=== PATIENT | male | born 1940 | race Caucasian/White ===

== ENCOUNTER 2022-05-10 11:23 | Inpatient (IN) | payer OTHER ==
[~2022-05-10] VITALS: Ht 172.7 cm; Wt 76.2 kg
[2022-05-10 11:35] VITALS: BP_SYST 106
--- NOTE | 2022-05-10 11:35 | NUR ---
PT TAKEN TO RADIOLOGY VIA WHEELCHAIR.
--- NOTE | 2022-05-10 11:48 | NUR ---
PT HAD SYNCOPAL EPISODE WHILE IN RADIOLOGY, BROUGHT IMMEDIATELY OVER TO ROOM #7 VIA WHEELCHAIR, TRIAGED. REPORT GIVEN TO ALIZE
--- NOTE | 2022-05-10 12:11 | NUR ---
IV 20G STARTED TO RIGHT AC, BLOOD DRAWN FROM IV FOR LAB. IV SECURED IN PLACE
[2022-05-10] MEDS ORDERED: ONDANSETRON HCL 4 MG/2 ML VIAL IVP ONE (12:15)
[2022-05-10] MEDS ORDERED: NACL 0.9% 1,000 ML IV ONE (12:15)
[2022-05-10] MEDS ORDERED: MORPHINE 4 MG INJ. 4 MG/ML VIAL IVP ONE (12:15)
--- NOTE | 2022-05-10 12:31 | NUR ---
pt noted to have sinus micah on monitor technician. informed md piña and asked if he wanted to change morphine medication, stated he will change pain medication
[2022-05-10] MEDS ORDERED: HYDROcodone/ACETAMIN 5-325 MG TAB (NORCO/ VICODIN) PO ONE (12:45)
[2022-05-10 12:48] LABS: BASOPHILS % (AUTO) 0.2 % (0.0-2.0); EOSINOPHILS % (AUTO) 0.2 % (0.0-4.0); HEMATOCRIT 43.2 % (36-54); HEMOGLOBIN 14.6 g/dL (14.0-18.0); LYMPHOCYTES # (AUTO) 1.2 K/uL (1.0-5.5); MEAN CORPUSCULAR HEMOGLOBIN 34 pg (27-31); MEAN CORPUSCULAR HGB CONC 34 % (32-36); MEAN CORPUSCULAR VOLUME 101 fL (79.0-98.0); MONOCYTES # (AUTO) 0.7 K/uL (0.0-1.0); MONOCYTES % (AUTO) 6.5 % (1.7-9.3); NEUTROPHILS # (AUTO) 8.6 K/uL (1.8-7.7); NEUTROPHILS % (AUTO) 82.1 % (40.0-70.0); PLATELET COUNT (AUTO) 203 K/uL (130-430); RED CELL DISTRIBUTION WIDTH 13.9 % (9.0-15.0); WHITE BLOOD COUNT (AUTO) 10.5 K/uL (4.8-10.8)
--- NOTE | 2022-05-10 12:48 | NUR ---
pt back from ct, resting in position of comfort. breathing even and unlabored. safety measures in place
--- NOTE | 2022-05-10 12:50 | NUR ---
attempting to administer pain medication, pt reports "i dont really need it, my pain is like a 3/10". md montesinos
[2022-05-10 12:51] LABS: ANION GAP 9 (5-15); CALCIUM 9.5 mg/dL (8.4-11.0); CHLORIDE 103 mmol/L (98-107); CREATININE 0.88 mg/dL (0.55-1.30); GLUCOSE 152 mg/dL (70-99); UREA NITROGEN, BLOOD 25 mg/dL (8-21)
[2022-05-10 12:56] LABS: ALANINE AMINOTRANSFERASE 53 U/L (12-78); ALBUMIN 3.5 g/dL (3.4-4.8); ASPARTATE AMINOTRANSFERASE 56 U/L (10-37); TOTAL BILIRUBIN 0.6 mg/dL (0.0-1.0)
--- NOTE | 2022-05-10 12:58 | NUR ---
attempting to obtain med rec, pt reports he doesnt take medications. denies medical history
--- NOTE | 2022-05-10 13:14 | NUR ---
COVID NASAL SWAB COLLECTED AT BEDSIDE AND SENT TO LAB
[2022-05-10] MEDS ORDERED: LIDOCAINE/EPI 2% 1:100000 20 ML VIAL INJ ONE (13:15)
--- NOTE | 2022-05-10 14:00 | NUR ---
CHEST TUBE PLACED BY MD ZAPATA AND SECURED. CHEST TUBE CONNECTED TO SUCTION. PT TOLERATED WELL, PT IS AWAKE, A/O X4 AND VERBALLY RESPONSIVE. NO ACUTE DISTRESS NOTED. BREATHING EVEN AND UNLABORED. SAFETY MEASURES IN PLACE
--- NOTE | 2022-05-10 14:20 | NUR ---
NORCO PO GIVEN FOR CHEST PAIN 8/10 S/P CHEST TUBE PLACEMENT, ZOFRAN IVP X1 GIVEN FOR NAUSEA.
[2022-05-10] MEDS ORDERED: KETOROLAC TROMETHAMINE 30 MG VIAL IVP ONE (14:45)
[2022-05-10] MEDS ORDERED: LORazepam 2 MG/ML VIAL IVP PRN (15:15)
[2022-05-10] MEDS ORDERED: ONDANSETRON HCL 4 MG/2 ML VIAL IVP PRN (15:15)
[2022-05-10] MEDS ORDERED: ACETAMINOPHEN 325 MG TABLET PO PRN ×2 (15:15→15:30)
--- NOTE | 2022-05-10 15:15 | NUR ---
Admit bed requested Patient will be admitted to care of . Admitted to TELE unit. Diagnosis PNEUMOTHORAX Inpatient (Yes or No) ES Observation (Yes or No) NO Orientation concerns or request close to nursing station (Yes or No) NO Covid Status NEGATIVE On vent or bipap NO Isolation requirements NO Needs a sitter NO From Home (Yes or if No enter name of facility) HOME Requires Dialysis (Yes or No) NO Med Rec Completed (Yes of No) YES
--- NOTE | 2022-05-10 15:30 | NUR ---
pt awake, a/ox4 and verbally responsive. no acute distress noted. breathing even and unlabored. pt remains resting in position of comfort. no changes at this time, safety measures in place
[2022-05-10] MEDS: NACL 0.9% 1,000 ML IV SCH (15:31)
--- NOTE | 2022-05-10 16:43 | NUR ---
CONSULTATION PAGED REASON FOR CONSULTATION: PNEUMOTHORAX WAS CONSULT CALLED? Y PERSON WHO WAS NOTIFIED: NOHEMY CONSULTING PHYSICIAN: MELISSA BLEVINS (CHRIS [employer] SUPERVISOR COLOR MAKING) SLAB INSTALLER SPECIALTY: PULMONARY SLAB INSTALLER PHONE NUMBER:[phone] REQUESTING PHYSICIAN: PATRICK ROMERO
--- NOTE | 2022-05-10 16:51 | NUR ---
PT TRANSFERRED ONTO TELE BED 100A. BEDSIDE REPORT PROVIDED TO STEFFANIE HESS RN TO CONTINUE CARE OF PT. PT AWAKE A/O X4 AND VERBALLY RESPONSIVE. NO ACUTE DISTRESS NOTED
[2022-05-10 16:55] VITALS: BP_SYST 141
--- NOTE | 2022-05-10 17:00 | NUR ---
RECEIVED PT FROM Naseem. PT IS AAO, PT CAME IN FROM ER FOR CC OF RIB PAIN, DX IS RIB FRACTURE AND PNEUMOTHORAX. CHEST TUBE INTACT CONNECTED TO OASIS DRY SUCTION DRAIN AND TO LOW INTERMITTENT SUCTION. NO DRAINAGE NOTED. PT DENIES CHEST PAIN OR RIB PAIN AT THIS TIME. PT ENCOURAGED TO CALL FOR PAIN MED WHEN PAIN STARTS TO GO UP. WILL CONT TO MONITOR. Addendum: 05/10/22 at 1850 by Keegan Man RN NOTED THAT CHESTUBE IS DIRECTLY CONNECTED TO "SUCTION TUBING" AND NOT ON THE "DRAIN TUBING".
[2022-05-10 17:10] VITALS: BP_SYST 141
--- NOTE | 2022-05-10 18:50 | NUR ---
PT PROVIDED SANDWICH FOR DINNER. REQUESTED DIETARY FOR REG TRAY EARLIER BUT THEY ARE NO ABLE TO PROVIDE.
--- NOTE | 2022-05-10 19:01 | NUR ---
PT MADE AWARE THAT HIS FRIEND SUREKHA CALLED. PT SAID HE LIVES ALONE , IN AN APARTMENT. THIS RN ASKED PT IF HE WANTS US TO CALL HIS CHILDREN. PT SAID NO, HIS FRIEND WILL CALL THEM.
--- NOTE | 2022-05-10 19:20 | NUR ---
RECEIVED REPORT ON PATIENT FROM ANDREA AGUILAR, ASSUMED CARE, AND STARTED ASSESSMENT.
[2022-05-10 20:00] VITALS: BP_SYST 123
--- NOTE | 2022-05-10 22:45 | NUR ---
PAGED DOCTOR ADARSH
--- NOTE | 2022-05-10 22:50 | NUR ---
PAGED PAGED DOCTOR ALTAMIRANO
[2022-05-10] MEDS: HYDROcodone/ACETAMIN 5-325 MG TAB (NORCO/ VICODIN) PO PRN (23:00)
--- NOTE | 2022-05-10 23:00 | NUR ---
PAGED PAGED COLIN ALTAMIRANO
--- NOTE | 2022-05-10 23:03 | NUR ---
PAGED DOCTOR ADARSH
--- NOTE | 2022-05-10 23:04 | NUR ---
PATIENT C/O PAIN IN GENERALIZED CHEST REGION @ 06/09. HE REQUESTED PAIN MEDICATION. MEDICATED PT WITH NORCO 5/325 FOR PAIN PER MD ORDERS. PATIENT HEART RATE WAS FOUND TO BE VASCILLATING BETWEEN THE 30s TO THE 50s. BLOOD PRESSURE WAS 96/53. DR ALTAMIRANO WAS CALLED AWAITING CALL RETURN.
--- NOTE | 2022-05-10 23:10 | NUR ---
PAGED DOCTOR ADARSH
--- NOTE | 2022-05-10 23:20 | NUR ---
PAGED PAGED DOCTOR ALTAMIRANO
--- NOTE | 2022-05-10 23:25 | NUR ---
SPOKE WITH DR GOYAL. HE SAID THAT THIS IS A TRAUMA PATIENT THAT WE ARE NOT EQUIPPED TO HANDLE. HE GAVE ORDERS TO TRANSFER THE PATIENT TO [facility]. WILL CARRY OUT ORDERS AND CONTINUE TO MONITOR AND ASSESS FOR SAFETY AND COMFORT.
--- NOTE | 2022-05-10 23:35 | NUR ---
PAGED DOCTOR JYOTSNA SINCE DR ALTAMIRANO NEVER ANSERED THE PHONE
--- NOTE | 2022-05-10 23:47 | NUR ---
[facility] SPOKE WITH CARLENE , SHE SPOKE WITH THE [facility] SURGEON AND THE DOCTOR SAID THIS PT IS UNSTABLE FOR TRANSFER.. CALLED DR GOYAL BACK CHARGE NURSE IS SPEAKING WITH DR GOYAL
--- NOTE | 2022-05-10 23:52 | NUR ---
CALLED BACK: SINCE DR ALTAMIRANO IS NOT RESPONDING BACK , CALLED DR JYOTSNA MD CALLED BACK , ORDERED TO TRANSFER PT TO ICU , STAT ECHO , DR SUNSHINE CONSULT STAT AND CALL DR TELLEZ STAT . PRIMARY RN IS AWARE OF NEW ORDERS .
--- NOTE | 2022-05-10 23:55 | NUR ---
PAGED DOCTOR JYOTSNA AGAIN FOR ORDERS
--- NOTE | 2022-05-10 23:55 | NUR ---
MD CALLED : CALLED AND TALKED WITH DR SUNSHINE , EXPLAINED MD ABOUT PTS CONDITION , NOTIFIED MD THAT PT IS ON CHEST TUBE FOR PNEUMOTHORAX S/P FALL FX OF 8-11 RIGHT SIDE RIBS , AND PER RECENT CHEST XRAY PNEUMOTHORAX IS RESOLVED . PTS HR WAS ON SINUS EARLIER , SUDDENLY IT STARTED DROPPING AND THE LOWEST ONE IS 31 (MT TOLD ME IT DROPPED TO 28 THEN , I NOTIFIED IT TO MD ), MD NOTIFIED ITS NOT SUSTAINING ON IT AND CURRENTLY ITS 48 , PTS BP IS 85/40. MD ORDERED TO START PT ON DOPAMINE DRIP 5 MCG/KG/MIN AND MAINTAIN HR ABOVE 50 .TRANSFER PT TO ICU , NS BOLUS [address] .PRIMARY RN AND HOUSE SUP MADE AWARE OF THE NEW ORDERS .
--- NOTE | 2022-05-10 23:55 | NUR ---
PAGED: DR STANFORD PAGED,
[2022-05-11] VITALS (17 sets, daily range): BP systolic 88–130
[2022-05-11] MEDS ORDERED: NS 500 ML IV ONE ×2 (00:15→01:30)
[2022-05-11] MEDS ORDERED: COMMUNICATION ORDER XX ONE (00:15)
--- NOTE | 2022-05-11 00:25 | NUR ---
CALLED FRIEND SUREKHA CALLED SUREKHA [phone] LEFT MESSAGE TO CALL US BACK
--- NOTE | 2022-05-11 00:58 | NUR ---
PATIENT TRANSFERRED TO ICU PER MD ORDERS, AND REPORT WAS GIVEN TO SUSIE. CARE TURNED OVER TO ANDREA RICHARDS.
--- NOTE | 2022-05-11 01:00 | NUR ---
Received patient from [facility] after patient developed episode of bradycardia and hypotension. Patient had an order for chest CT and prior to be brought to ICU patient was sent to CT department. Once in ICU, patient was started on dopamine and IV bolus was given as per MD orders. will continue to monitor.
[2022-05-11] MEDS ORDERED: ALBUMIN HUMAN 25% 50 ML IV ONE ×2 (01:30)
[2022-05-11 01:40] LABS: MEAN CORPUSCULAR HEMOGLOBIN 33 pg (27-31); MEAN CORPUSCULAR HGB CONC 33 % (32-36); MEAN CORPUSCULAR VOLUME 100 fL (79.0-98.0); PLATELET COUNT (AUTO) 195 K/uL (130-430); RED CELL DISTRIBUTION WIDTH 13.9 % (9.0-15.0); WHITE BLOOD COUNT (AUTO) 12.3 K/uL (4.8-10.8)
[2022-05-11 01:58] LABS: ALANINE AMINOTRANSFERASE 37 U/L (12-78); ALBUMIN 2.6 g/dL (3.4-4.8); ANION GAP 10 (5-15); ASPARTATE AMINOTRANSFERASE 37 U/L (10-37); CALCIUM 8.3 mg/dL (8.4-11.0); CHLORIDE 111 mmol/L (98-107); CREATININE 0.93 mg/dL (0.55-1.30); GLUCOSE 171 mg/dL (70-99); TOTAL BILIRUBIN 0.7 mg/dL (0.0-1.0); UREA NITROGEN, BLOOD 29 mg/dL (8-21)
[2022-05-11] MEDS ORDERED: NOREPINEPHRINE 4 MG/4 ML VIAL IV ONE ×3 (02:54→08:10)
[2022-05-11 03:18] LABS: BAND % (MANUAL) 2 % (0-6); BASOPHILS % (MANUAL) 0 % (0-2); EOSINOPHILS % (MANUAL) 0 % (0-7); LYMPHOCYTES % (MANUAL) 21 % (20-46); MONOCYTES % (MANUAL) 0 % (0-11)
[2022-05-11] MEDS ORDERED: NOREPINEPHRINE BITARTRATE 4 MG in NS 246 ML IV PRN (03:45)
[2022-05-11] MEDS: NACL 0.9% 1,000 ML IV SCH ×2 (06:30→12:58)
[2022-05-11] MEDS: DOPAMINE 400 MG IV PRN (06:34)
[2022-05-11] MEDS: D5W IV PRN (06:34)
--- NOTE | 2022-05-11 09:03 | NUR ---
Dr. Trevino bedside assessing patient. New orders placed.
[2022-05-11] MEDS ORDERED: ATROPINE SULFATE 1 MG/10 ML SYRINGE IVP PRN (09:15)
[2022-05-11] MEDS: NOREPINEPHRINE BITARTRATE 8 MG in NS 242 ML IV PRN ×3 (09:21→23:29)
[2022-05-11] MEDS ORDERED: NACL 0.9% 1,000 ML IV ONE (09:30)
[2022-05-11 09:42] LABS: BASOPHILS % (AUTO) 0.1 % (0.0-2.0); HEMOGLOBIN 11.7 g/dL (14.0-18.0); LYMPHOCYTES # (AUTO) 0.7 K/uL (1.0-5.5); LYMPHOCYTES % (AUTO) 4.8 % (20.5-51.5); MEAN CORPUSCULAR HEMOGLOBIN 34 pg (27-31); MEAN CORPUSCULAR HGB CONC 33 % (32-36); MEAN CORPUSCULAR VOLUME 101 fL (79.0-98.0); MONOCYTES % (AUTO) 7.5 % (1.7-9.3); PLATELET COUNT (AUTO) 219 K/uL (130-430); RED BLOOD CELL COUNT(AUTO) 3.48 MIL/uL (4.2-6.2); RED CELL DISTRIBUTION WIDTH 14.1 % (9.0-15.0); WHITE BLOOD COUNT (AUTO) 13.7 K/uL (4.8-10.8)
[2022-05-11 09:45] LABS: NEUTROPHILS % (AUTO) 87.6 % (40.0-70.0)
[2022-05-11 09:57] LABS: INR 1.1 (0.80-1.20); PROTHROMBIN TIME 10.7 SECS (9.5-12.5)
--- NOTE | 2022-05-11 10:13 | NUR ---
Dr. Cobb bedside assessing patient. No new orders placed
--- NOTE | 2022-05-11 10:35 | NUR ---
Dr. Melendez bedside assessing patient. Per MD need CT surgery consult. Dr. Cobb paged and notified of needed consult.
--- NOTE | 2022-05-11 19:28 | NUR ---
RECEIVED REPORT ON PATIENT FROM ANDREA HERNÁNDEZ, ASSUMED CARE, AND STARTED ASSESSMENT.
[2022-05-12] VITALS (31 sets, daily range): BP systolic 76–152
--- NOTE | 2022-05-12 00:46 | NUR ---
PATIENT HAD AN IV TO HIS LEFT BICEP, AND THE LEFT FOREARM. THE LEFT ARM WAS NOTICEABLY SWOLLEN AND FLUID WAS VISIBLE POOLING BENEATH THE SKIN. THE ARM WAS INFILTRATED. THE IV'S WERE MOVED TO THE RIGHT WRIST ON A DOUBLE LUMEN J-LINE AND BOTH THE SALINE LOCKS ON THE LEFT ARM WERE DISCONTINUED. THE LEFT ARM WAS ELEVATED ON A PILLOW. ANOTHER IV WAS STARTED TO THE LEFT WRIST AND REMAINS SALINE LOCKED. WILL CONTINUE TO MONITOR AND ASSESS PATIENT FOR SAFETY AND COMFORT.
[2022-05-12] MEDS ORDERED: NOREPINEPHRINE 4 MG/4 ML VIAL IV ONE (06:14)
[2022-05-12 06:20] LABS: BASOPHILS % (AUTO) 0.3 % (0.0-2.0); EOSINOPHILS % (AUTO) 0.2 % (0.0-4.0); HEMATOCRIT 24.8 % (36-54); LYMPHOCYTES # (AUTO) 1.5 K/uL (1.0-5.5); LYMPHOCYTES % (AUTO) 13.8 % (20.5-51.5); MEAN CORPUSCULAR HEMOGLOBIN 35 pg (27-31); MEAN CORPUSCULAR HGB CONC 35 % (32-36); MEAN CORPUSCULAR VOLUME 100 fL (79.0-98.0); MONOCYTES # (AUTO) 1.2 K/uL (0.0-1.0); MONOCYTES % (AUTO) 10.7 % (1.7-9.3); NEUTROPHILS # (AUTO) 8.1 K/uL (1.8-7.7); PLATELET COUNT (AUTO) 157 K/uL (130-430); RED BLOOD CELL COUNT(AUTO) 2.48 MIL/uL (4.2-6.2); RED CELL DISTRIBUTION WIDTH 13.9 % (9.0-15.0); WHITE BLOOD COUNT (AUTO) 10.7 K/uL (4.8-10.8)
[2022-05-12 06:59] LABS: ALANINE AMINOTRANSFERASE 31 U/L (12-78); ALBUMIN 2.5 g/dL (3.4-4.8); ANION GAP 9 (5-15); ASPARTATE AMINOTRANSFERASE 29 U/L (10-37); CALCIUM 7.9 mg/dL (8.4-11.0); CHLORIDE 112 mmol/L (98-107); GLUCOSE 121 mg/dL (70-99); TOTAL BILIRUBIN 0.3 mg/dL (0.0-1.0); UREA NITROGEN, BLOOD 31 mg/dL (8-21)
[2022-05-12 07:07] LABS: THYROID STIMULATING HORMONE 0.26 uIu/mL (0.36-3.74)
--- NOTE | 2022-05-12 07:07 | NUR ---
REPORT GIVEN TO ANDREA HERNÁNDEZ, AND CARE WAS TURNED OVER TO HER.
--- NOTE | 2022-05-12 07:15 | NUR ---
Opening Note Received report from nightclub manager nurse. No s/s of distress. Will monitor and give cares as order by
[2022-05-12] MEDS ORDERED: NS 500 ML IV ONE (08:45)
[2022-05-12 08:59] LABS: HEMOGLOBIN 8.6 g/dL (14.0-18.0)
[2022-05-12] MEDS: HYDROcodone/ACETAMIN 5-325 MG TAB (NORCO/ VICODIN) PO PRN (13:24)
[2022-05-12] MEDS: MORPHINE 2 MG/ML INJ. SYRINGE IVP PRN (13:24)
[2022-05-12] MEDS: NACL 0.9% 1,000 ML IV SCH ×2 (15:24→21:17)
--- NOTE | 2022-05-12 17:12 | NUR ---
business services specialist sales re: social service consult for HLOC for CTVS Evaluation Met with ANDREA Lazo in ICU to advise her that the social service consult for HLOC for CTVS Evaluation will be addressed and handled by the case management team through his insurance, [employer]. I advised her that this consult was faxed to [employer] earlier today to begin working on this need. At this time, the nurse was advised that there was no further follow up needed from high school social studies teacher.
[2022-05-12 20:27] LABS: PROTHROMBIN TIME 10.4 SECS (9.5-12.5)
[2022-05-12] MEDS: DOPAMINE 400 MG IV PRN (21:17)
[2022-05-12] MEDS: D5W IV PRN (21:17)
[2022-05-13] VITALS (22 sets, daily range): BP systolic 104–130
[2022-05-13] MEDS: NACL 0.9% 1,000 ML IV SCH ×3 (05:18→21:06)
[2022-05-13 06:09] LABS: BASOPHILS % (AUTO) 0.1 % (0.0-2.0); EOSINOPHILS % (AUTO) 0.4 % (0.0-4.0); HEMATOCRIT 22.8 % (36-54); HEMOGLOBIN 7.9 g/dL (14.0-18.0); LYMPHOCYTES # (AUTO) 0.9 K/uL (1.0-5.5); LYMPHOCYTES % (AUTO) 9.2 % (20.5-51.5); MEAN CORPUSCULAR HEMOGLOBIN 34 pg (27-31); MEAN CORPUSCULAR HGB CONC 34 % (32-36); MEAN CORPUSCULAR VOLUME 98 fL (79.0-98.0); MONOCYTES # (AUTO) 0.9 K/uL (0.0-1.0); MONOCYTES % (AUTO) 9.2 % (1.7-9.3); NEUTROPHILS # (AUTO) 7.6 K/uL (1.8-7.7); NEUTROPHILS % (AUTO) 81.1 % (40.0-70.0); PLATELET COUNT (AUTO) 107 K/uL (130-430); RED BLOOD CELL COUNT(AUTO) 2.32 MIL/uL (4.2-6.2); RED CELL DISTRIBUTION WIDTH 14.1 % (9.0-15.0); WHITE BLOOD COUNT (AUTO) 9.3 K/uL (4.8-10.8)
[2022-05-13 06:43] LABS: ALANINE AMINOTRANSFERASE 28 U/L (12-78); ALBUMIN 2.2 g/dL (3.4-4.8); ANION GAP 7 (5-15); ASPARTATE AMINOTRANSFERASE 27 U/L (10-37); CALCIUM 7.7 mg/dL (8.4-11.0); CHLORIDE 111 mmol/L (98-107); CREATININE 0.56 mg/dL (0.55-1.30); GLUCOSE 91 mg/dL (70-99); TOTAL BILIRUBIN 0.6 mg/dL (0.0-1.0); UREA NITROGEN, BLOOD 16 mg/dL (8-21)
--- NOTE | 2022-05-13 11:15 | NUR ---
1115 AM ATTEMPTED TO CALL DR. FLORES BY [employer], PHONE SYSTEM NOT WORKING. CHARGE NURSE NOTIFIED.
--- NOTE | 2022-05-13 11:15 | NUR ---
1105 AM WHILE REMOVING CHEST TUBE BANDAGE TO ASSESS INSERTION SITE. CHEST TUBE FELL OUT. VASELINE GAUZE APPLIED AND DRESSED WITH GAUZE AND TAPE. PATIENT DENIES SHORTNESS OF BREATH O2 SAT 97%, 20 RR, BP 120/59 HOB ELEVATED.
--- NOTE | 2022-05-13 11:20 | NUR ---
1[address] AM ABLE TO REACH DR. FLORES, INFORMED OF CHEST TUBE COMING OUT. STAT CHEST X-RAY ORDERED.
--- NOTE | 2022-05-13 15:59 | NUR ---
1550 DR. FLORES AT BEDSIDE ORDERED CHEST X-RAY AND H & H FOR TOMORROW 05/14/2022
[2022-05-14] VITALS (24 sets, daily range): BP systolic 97–137
[2022-05-14] MEDS: NACL 0.9% 1,000 ML IV SCH ×3 (05:43→21:01)
[2022-05-14 05:59] LABS: HEMATOCRIT 22.2 % (36-54); HEMOGLOBIN 7.6 g/dL (14.0-18.0)
[2022-05-14 07:49] LABS: BASOPHILS % (AUTO) 0.1 % (0.0-2.0); EOSINOPHILS # (AUTO) 0.1 K/uL (0.0-0.4); EOSINOPHILS % (AUTO) 0.5 % (0.0-4.0); HEMATOCRIT 23.5 % (36-54); LYMPHOCYTES # (AUTO) 0.7 K/uL (1.0-5.5); LYMPHOCYTES % (AUTO) 6.2 % (20.5-51.5); MEAN CORPUSCULAR HEMOGLOBIN 34 pg (27-31); MEAN CORPUSCULAR HGB CONC 34 % (32-36); MEAN CORPUSCULAR VOLUME 99 fL (79.0-98.0); MONOCYTES # (AUTO) 0.8 K/uL (0.0-1.0); MONOCYTES % (AUTO) 7.6 % (1.7-9.3); NEUTROPHILS # (AUTO) 9.3 K/uL (1.8-7.7); NEUTROPHILS % (AUTO) 85.6 % (40.0-70.0); PLATELET COUNT (AUTO) 123 K/uL (130-430); RED BLOOD CELL COUNT(AUTO) 2.39 MIL/uL (4.2-6.2); RED CELL DISTRIBUTION WIDTH 14.3 % (9.0-15.0); WHITE BLOOD COUNT (AUTO) 10.9 K/uL (4.8-10.8)
--- NOTE | 2022-05-14 08:00 | NUR ---
HANNA PHILLIPS RN IS IN CHARGE OF THIS PT WHO IS ALERT/ORIENTED, DENIES PAIN, REGULAR DIET AND IN ZERO DISTRESS ON ROOM AIR/MPT CONSUMED 100% OF BREAKFAST/MW
[2022-05-14 08:30] LABS: ALANINE AMINOTRANSFERASE 27 U/L (12-78); ALBUMIN 2.1 g/dL (3.4-4.8); ANION GAP 6 (5-15); ASPARTATE AMINOTRANSFERASE 25 U/L (10-37); CHLORIDE 110 mmol/L (98-107); CREATININE 0.56 mg/dL (0.55-1.30); GLUCOSE 94 mg/dL (70-99); TOTAL BILIRUBIN 0.6 mg/dL (0.0-1.0); UREA NITROGEN, BLOOD 16 mg/dL (8-21)
[2022-05-14] MEDS ORDERED: POTASSIUM CHLORIDE 20 MEQ/PKT PACKET PO ONE (14:45)
--- NOTE | 2022-05-14 20:00 | NUR ---
PM ASSESSMENT REPORT RECEIVED FROM HANNA MENDEZ. PT RECEIVED IN BED WITH EYES OPEN, AAOX4, AND FOLLOWING VERBAL COMMANDS. VSS, NO S/S OF ACUTE DISTRESS NOTED. PT DENIES ANY PAIN OR DISCOMFORT AT THIS TIME. PT ON 2L NC. SR ON MONITOR. JUANY PICC IN PLACE, PATENT AND INTACT. SMITH CATH DRAINING URINE TO GRAVITY. HOB ELEVATED, BED LOCKED AND IN LOWEST POSITION, CALL LIGHT IN REACH. WILL CONTINUE TO MONITOR PT.
--- NOTE | 2022-05-14 22:15 | NUR ---
Pt report received. Pt resting quietly with eyes closed, even and non-labored respirations, VSS, NAD.
[2022-05-15] VITALS (20 sets, daily range): BP systolic 96–129
--- NOTE | 2022-05-15 05:00 | NUR ---
Pt c/o right side pain 5/10 while attempting to reposition. Pt medicated with Zofran 4 mg and Morphine 2 mg IVP then was able to tolerate repositioning and linen change. VSS, ASHISH.
[2022-05-15] MEDS: NACL 0.9% 1,000 ML IV SCH ×3 (05:01→22:08)
[2022-05-15 05:16] LABS: BASOPHILS % (AUTO) 0.2 % (0.0-2.0); EOSINOPHILS # (AUTO) 0.2 K/uL (0.0-0.4); EOSINOPHILS % (AUTO) 2.5 % (0.0-4.0); HEMATOCRIT 24.1 % (36-54); HEMOGLOBIN 8.2 g/dL (14.0-18.0); LYMPHOCYTES # (AUTO) 1.3 K/uL (1.0-5.5); LYMPHOCYTES % (AUTO) 14.2 % (20.5-51.5); MEAN CORPUSCULAR HEMOGLOBIN 34 pg (27-31); MEAN CORPUSCULAR HGB CONC 34 % (32-36); MEAN CORPUSCULAR VOLUME 99 fL (79.0-98.0); MONOCYTES # (AUTO) 0.8 K/uL (0.0-1.0); MONOCYTES % (AUTO) 9.3 % (1.7-9.3); NEUTROPHILS # (AUTO) 6.7 K/uL (1.8-7.7); NEUTROPHILS % (AUTO) 73.8 % (40.0-70.0); PLATELET COUNT (AUTO) 152 K/uL (130-430); RED BLOOD CELL COUNT(AUTO) 2.43 MIL/uL (4.2-6.2); RED CELL DISTRIBUTION WIDTH 14.1 % (9.0-15.0)
[2022-05-15 05:41] LABS: ANION GAP 6 (5-15); CALCIUM 8.2 mg/dL (8.4-11.0); CHLORIDE 109 mmol/L (98-107); CREATININE 0.59 mg/dL (0.55-1.30); GLUCOSE 101 mg/dL (70-99); UREA NITROGEN, BLOOD 16 mg/dL (8-21)
[2022-05-15] MEDS: MORPHINE 2 MG/ML INJ. SYRINGE IVP PRN (05:57)
--- NOTE | 2022-05-15 07:15 | NUR ---
received pt from environmental sampler nurse, sleeping in the bed, arousable, on 2L n.c., O2 sat well, unlabored, VS stable. Moving all extremities, peripheral pulse, right PICC S/L. f/c patent. right chest dressing in place.
--- NOTE | 2022-05-15 07:15 | NUR ---
Pt report given to oncoming RN. Pt resting quietly, even and non-labored respirations, VSS, NAD.
--- NOTE | 2022-05-15 09:00 | NUR ---
PT AAOX4, DRINKING WATER INDEPENDENTLY, NO WOUNDS OF PRESSORS IN PLACE. SMITH CATH 16FR REMOVED, 10ML NS REMOVED FROM BALLON. PT TOLERATED PROCEDURE WELL. DENIES PAIN. PT EDUCATED TO MAINTAIN FLUIDS AND REPORT S/S OF URINARY RETENTION.
--- NOTE | 2022-05-15 10:35 | NUR ---
urinate through urinal 50ml yellow urine, denies dysuria.
--- NOTE | 2022-05-15 15:13 | NUR ---
DR. LARA AT BEDSIDE TO ASSESS PT. MADE AWARE DAUGHTER BAILEE WOULD LIKE TO BE UPDATED, HE STATED HE WILL CALL HER NOW.
--- NOTE | 2022-05-15 15:36 | NUR ---
Dietitian Recommendations * Continue Regular diet * High-fiber snacks BID * Consider bowel regimen --> no BM x5 days LP, MS, RD Please refer to Nutrition Assessment for details. Addendum: 05/15/22 at [address] Amended: Links added.
--- NOTE | 2022-05-15 15:51 | NUR ---
Dr. Bah assess pt at bedside, agree to transfer pt to Telemetry, ordered PT/ OT
--- NOTE | 2022-05-15 17:30 | NUR ---
Transferred pt to Telemetry in stable condition. Handed off patient to nurse Chayito.
--- NOTE | 2022-05-15 17:30 | NUR ---
RECEIVED PT FROM ICU NURSE. PT IS IN BED A/O X4. NO S/S OF DISTRESS OR PAIN REPORTED. BREATHING IS EVEN AND UNLABORED ON 2L NC 98%. PT VITALS ARE STABLE. MST ASSESSMENT COMPLETE. PT SKIN IS INTACT. PT HAS DRESSING OVER AREA OF RIGHT CHEST TUBE REMOVAL AND ECCHYMOSIS ON RIGHT HIP FROM FALL. PT HAS PICC LINE ON RIGHT UPPER ARM. ALL NEEDS MET AT THIS TIME, SAFETY CHECKS MADE AND CALL LIGHT WITHIN REACH.
--- NOTE | 2022-05-15 18:01 | NUR ---
PT EVAL PT CAN USE BEDSIDE COMMODE FOR A FEW DAYS ACCORDING TO PHYSICAL THERAPY EVAL. AND THEN SHOULD BE ABLE TO HAVE BATHROOM PRIVILEGES.
--- NOTE | 2022-05-15 18:03 | NUR ---
IMPORTANT: ICU NURSE SAID THE PT HAS ALLERGIES TO HEART MEDICATIONS. THE PT DOES NOT KNOW WHAT HEART MEDICATIONS HE IS ALLERGIC TO BUT HE SAID HIS PRIMARY DOCTOR DR PENA KNOWS. DR PENA'S OFFICE IS CLOSED AT THE TIME OF RECEIPT OF PT. [employer]LE IDENTITY MANAGEMENT CONSULTANT NURSE NEEDS TO HAVE TOMORROW'S DAY SHIFT NURSE (05/16/22) CALL DR PENA'S OFFICE TO VERIFY ALLERGIES. DR PENA [phone]. WILL ENDORSE THIS TO THE ORACLE IDENTITY MANAGEMENT CONSULTANT NURSE.
--- NOTE | 2022-05-15 18:35 | NUR ---
CLOSING NOTES: PT IN BED EATING DINNER. NO S/S OF DISTRESS OR PAIN REPORTED. BREATHING IS EVEN AND UNLABORED ON 2L NC 98%. ALL NEEDS MET AT THIS TIME, SAFETY CHECKS MADE AND CALL LIGHT WITHIN REACH. WILL ENDORSE TO CLOTH PATTERN MAKER NURSE.
[2022-05-15] MEDS: DOCUSATE SODIUM 100 MG CAPSULE PO SCH (22:08)
[2022-05-16 02:21] VITALS: BP_SYST 136
[2022-05-16 07:51] VITALS: BP_SYST 130
[2022-05-16] MEDS: SENNOSIDES 8.6 MG TABLET PO SCH (08:38)
[2022-05-16] MEDS: DOCUSATE SODIUM 100 MG CAPSULE PO SCH ×2 (08:38→21:00)
[2022-05-16 13:05] VITALS: BP_SYST 120
--- NOTE | 2022-05-16 15:37 | NUR ---
PHYSICAL THERAPY CO-SIGN The Physical Therapy Progress Notes documented by Broke Handler have been reviewed. Reviewed/Co-Signed by: Lorne Santana Documentation Done by:KONSTANTIN MASON Addendum: 05/16/22 at 1538 by Lorne Santana PT Amended: Links added.
[2022-05-16] MEDS: NACL 0.9% 1,000 ML IV SCH ×2 (16:07→22:49)
--- NOTE | 2022-05-16 16:15 | NUR ---
PATIENT RESTING QUIETLY IN BED, DENIES ANY DISCOMFORT OR SHORTNESS OF BREATH PRESENTLY. NO REQUEST FOR PAIN MEED DURING THIS SHIFT. PATIENT STATED, "I STILL HAVE NOT HAD A BOWEL MOVEMENT YET, I WENT TO THE BATHROOM BUT NOTHING HAPPENED" PATIENT PT TOLERATED MEDS AND DIET WELL. SAFETY PRECAUTIONS MAINTAINED. CONTINUE WITH POC.
[2022-05-16 17:08] VITALS: BP_SYST 108
[2022-05-16 20:00] VITALS: BP_SYST 113
--- NOTE | 2022-05-17 02:00 | NUR ---
Attempting to use restroom,patient disconnected self from telemetry, removed dressing right flank, and pulled out JUANY picc line. Patient was found sitting on edge of bed. Patient was reoriented, escorted to bathroom for BM. Back to bed safely.Charge nurse aware.
--- NOTE | 2022-05-17 03:00 | NUR ---
IV line started left forearm 20g. Dressing replaced using sterile technique to right flank. patient tolerated well.
[2022-05-17 04:00] VITALS: BP_SYST 116
--- NOTE | 2022-05-17 07:31 | NUR ---
OPENING NOTE RECEIVED PT ASLEEP, RESPIRATIONS EVEN, UNLABORED. NO DISTRESS. SKIN WARM AND DRY. CALL LIGHT IN REACH
[2022-05-17 07:47] LABS: ANION GAP 8 (5-15); CALCIUM 8.3 mg/dL (8.4-11.0); CHLORIDE 108 mmol/L (98-107); CREATININE 0.66 mg/dL (0.55-1.30); GLUCOSE 100 mg/dL (70-99); UREA NITROGEN, BLOOD 21 mg/dL (8-21)
[2022-05-17 08:00] VITALS: BP_SYST 114
[2022-05-17] MEDS: SENNOSIDES 8.6 MG TABLET PO SCH (08:38)
[2022-05-17] MEDS: DOCUSATE SODIUM 100 MG CAPSULE PO SCH ×2 (08:38→21:28)
--- NOTE | 2022-05-17 08:54 | NUR ---
MD DR SUNSHINE BEDSIDE EXAMINING PATIENT, NEW ORDERS RECEIVED
[2022-05-17 09:28] LABS: BASOPHILS % (AUTO) 0.5 % (0.0-2.0); EOSINOPHILS # (AUTO) 0.2 K/uL (0.0-0.4); EOSINOPHILS % (AUTO) 1.9 % (0.0-4.0); HEMATOCRIT 26.8 % (36-54); HEMOGLOBIN 9.1 g/dL (14.0-18.0); LYMPHOCYTES # (AUTO) 1.2 K/uL (1.0-5.5); LYMPHOCYTES % (AUTO) 12.7 % (20.5-51.5); MEAN CORPUSCULAR HEMOGLOBIN 34 pg (27-31); MEAN CORPUSCULAR HGB CONC 34 % (32-36); MEAN CORPUSCULAR VOLUME 99 fL (79.0-98.0); MONOCYTES % (AUTO) 10.1 % (1.7-9.3); NEUTROPHILS # (AUTO) 7.1 K/uL (1.8-7.7); NEUTROPHILS % (AUTO) 74.8 % (40.0-70.0); PLATELET COUNT (AUTO) 224 K/uL (130-430); RED CELL DISTRIBUTION WIDTH 14.1 % (9.0-15.0); WHITE BLOOD COUNT (AUTO) 9.5 K/uL (4.8-10.8)
--- NOTE | 2022-05-17 11:21 | NUR ---
Pt. was seen for OT evaluation, cleared by nursing. Patient was alert and cooperative. Pls. see OT evaluation form in chart for more detail.
--- NOTE | 2022-05-17 12:22 | NUR ---
NURSE NOTE ASSISTED PATIENT WITH AMBULATION TO THE BATHROOM. VOIDED AND LARGE BM. RETURNED TO BED. PROVIDED LUNCH TRAY. PATIENT DENIES ANY PAIN OR DISCOMFORT.
[2022-05-17 12:25] VITALS: BP_SYST 111
[2022-05-17 15:11] VITALS: BP_SYST 116
--- NOTE | 2022-05-17 15:22 | NUR ---
PHYSICAL THERAPY CO-SIGN The Physical Therapy Progress Notes documented by Automobiles Salesperson have been reviewed. Reviewed/Co-Signed by: Lorne Santana Documentation Done by:KONSTANTIN MASON Addendum: 05/17/22 at 1523 by Lorne Santana PT Amended: Links added.
--- NOTE | 2022-05-17 19:38 | NUR ---
RECEIVED REPORT ON PATIENT FROM GENARO, RN, ASSUMED CARE, AND STARTED ASSESSMENT.
[2022-05-17 20:00] VITALS: BP_SYST 121
--- NOTE | 2022-05-18 07:31 | NUR ---
REPORT GIVEN TO ANDREA LACY, AND CARE WAS TURNED OVER TO HER.
[2022-05-18 08:00] VITALS: BP_SYST 115
[2022-05-18 08:16] VITALS: BP_SYST 121
[2022-05-18] MEDS: SENNOSIDES 8.6 MG TABLET PO SCH (09:03)
[2022-05-18] MEDS: DOCUSATE SODIUM 100 MG CAPSULE PO SCH ×2 (09:03→20:33)
[2022-05-18 12:00] VITALS: BP_SYST 115
[2022-05-18 16:00] VITALS: BP_SYST 114
--- NOTE | 2022-05-18 18:25 | NUR ---
PT A/OX4,VSS,AMBULATORY WELL BY SELF,RESPIRATES EVEN AND UNLABORED O2 SAT 98% ON ROOM AIR,NEEDS ATTENDED,CALL LIGHT & PERSONAL ITEMS WITHIN PT REACH,SAFETY MAINTAINED.CONTINUE TO MONITOR PT.
--- NOTE | 2022-05-18 19:48 | NUR ---
RECEIVED REPORT ON PATIENT FROM GENARO, RN, ASSUMED CARE, AND STARTED ASSESSMENT.
[2022-05-18 20:00] VITALS: BP_SYST 132
--- NOTE | 2022-05-19 07:30 | NUR ---
RN OPENING NOTE REPORT WAS ENDORSED BY NIGHT NURSE. PATIENT IS AWAKE AND ALERT NO SIGNS OF AN DISTRESS, BREATHING IS EQUAL AND NON LABORED. PATIENT EDUCATED GOLF CLUB WEIGHER LIGHT FOR ASSISTANCE. CALL LIGHT IS WITH HER.
--- NOTE | 2022-05-19 07:33 | NUR ---
report given to tressa winters, and care was turned over to him.
[2022-05-19 08:04] VITALS: BP_SYST 111
[2022-05-19] MEDS: SENNOSIDES 8.6 MG TABLET PO SCH (08:50)
[2022-05-19] MEDS: DOCUSATE SODIUM 100 MG CAPSULE PO SCH ×2 (08:50→21:13)
--- NOTE | 2022-05-19 08:53 | NUR ---
MEDICATION PATIENTS SCHEDULED MEDICATION GIVEN PER ORDER. PATIENT EDUCATED ASSEMBLY CLEANER LIGHT FOR ASSISTANCE. CALL LIGHT IS WITH HIM. PATIENT IS ALSO STARTING PT RIGHT NOW.
--- NOTE | 2022-05-19 11:20 | NUR ---
RN ROUNDING PATIENT IS AWAKE AND ALERT SITTING UP IN BED NO COMPLAINTS AT THIS TIME. CALL LIGHT IS WITH HIM EDUCATED HIM TO USE FOR ASSISTANCE. PATIENT HAS NO OTHER NEEDS AT THIS TIME
[2022-05-19 12:35] VITALS: BP_SYST 124
--- NOTE | 2022-05-19 13:53 | NUR ---
RN ROUNDING PATIENT IS AWAKE AND ALERT SITTING UP IN BED NO SIGNS OF ANY DISTRESS, BREATHING IS EQUAL AND NON LABORED. NO COMPLAINTS AT THIS TIME. EDUCATED HEAD BATCHER LIGHT FOR ASSISTANCE. CALL LIGHT IS WITH HIM.
--- NOTE | 2022-05-19 15:23 | NUR ---
PHYSICAL THERAPY CO-SIGN The Physical Therapy Progress Notes documented by [employer] Salesperson have been reviewed. Reviewed/Co-Signed by: Lorne Santana Documentation Done by:KONSTANTIN MASON Addendum: 05/19/22 at 1523 by Lorne Santana PT Amended: Links added.
--- NOTE | 2022-05-19 15:30 | NUR ---
/ SPOKE WITH DR. VERDUGO OK TO DISCHARGE JUST REMOVE SUTURE FROM CHEST TUBE INSERTION SITE. OK TO ARRANGE HOME HEALTH FOR PT AND OT AT HOME. PATIENT IS AWARE OF PLAN OF CARE. NO OTHER NEEDS AT THIS TIME.
--- NOTE | 2022-05-19 16:02 | NUR ---
Pt. was seen for OT tx, tolerated tx well, pls see OT tx notes in chart for more detail. Nursing notified.
[2022-05-19 16:21] VITALS: BP_SYST 116
--- NOTE | 2022-05-19 18:42 | NUR ---
RN CLOSING NOTE PATIENT IS AWAKE AND ALERT NO SIGNS OF ANY DISTRESS, BREATHING IS EQUAL AND NON LABORED. WITH NO COMPLAINTS AT THIS TIME. EDUCATED TO USE CALL LIGHT FOR ASSISTANCE CALL LIGHT IS WITH HIM. NO OTHER NEEDS AT THIS TIME
[2022-05-19 20:00] VITALS: BP_SYST 122
--- NOTE | 2022-05-19 20:45 | NUR ---
OPENING NOTES: Patient received from AM shift nurse. Patient is AA&Ox4 able to make needs known, denies any pain or distress at this time and has call light within reach. Chest rise is even and unlabored on RA. Safety measures are in place as per protocol. Will resume care and continue to monitor throughout the shift.
[2022-05-20 00:30] VITALS: BP_SYST 116
[2022-05-20 08:12] VITALS: BP_SYST 116
[2022-05-20] MEDS: DOCUSATE SODIUM 100 MG CAPSULE PO SCH (09:53)
[2022-05-20] MEDS: SENNOSIDES 8.6 MG TABLET PO SCH (09:53)
[2022-05-20 13:23] VITALS: BP_SYST 120
[2022-05-20] MEDS ORDERED: ACET325T PO (13:51)
[2022-05-20 14:29] VITALS: BP_SYST 120
--- NOTE | 2022-05-20 15:21 | NUR ---
PHYSICAL THERAPY CO-SIGN The Physical Therapy Progress Notes documented by Air Bag Builder have been reviewed. Reviewed/Co-Signed by: Hira Rodriguez Documentation Done by:KONSTANTIN MASON Addendum: 05/20/22 at 1521 by Hira Rodriguez PT Amended: Links added.
== END 2022-05-20 15:30 | disposition home health service (06) | DRG 199 ==
LOC: SED 11:23 → STU 16:14 → SIC 05-11 00:45 → STU 05-15 16:35 → SIC 05-15 16:57 → STU 05-15 17:11 → SMU 05-17 11:56
PROVIDERS: ADMIT Student in an Organized Health Care Education/Training Program; ATTEND Student in an Organized Health Care Education/Training Program
PROC: 0W9930Z Drainage of Right Pleural Cavity with Drainage Device, Percutaneous Approach (ICD-10-PCS; principal; 2022-05-10)
PROC: 30233N1 Transfusion of Nonautologous Red Blood Cells into Peripheral Vein, Percutaneous Approach (ICD-10-PCS; 2022-05-12)
PROC: 05HY33Z Insertion of Infusion Device into Upper Vein, Percutaneous Approach (ICD-10-PCS; 2022-05-12)
DX: S27.2XXA Traumatic hemopneumothorax, initial encounter (principal); J96.00 Acute respiratory failure, unspecified whether with hypoxia or hypercapnia; S22.5XXA Flail chest, initial encounter for closed fracture; S27.69XA Other injury of pleura, initial encounter; I24.8 Other forms of acute ischemic heart disease; W01.0XXA Fall on same level from slipping, tripping and stumbling without subsequent striking against object, initial encounter; Z20.822 Contact with and (suspected) exposure to COVID-19; J43.9 Emphysema, unspecified; R00.1 Bradycardia, unspecified; E86.1 Hypovolemia; Z87.891 Personal history of nicotine dependence; Y93.89 Activity, other specified; Y92.89 Other specified places as the place of occurrence of the external cause; Y99.8 Other external cause status
CPT/HCPCS: 36415; 70450-TC; 71045; 71100; 71250-TC; 76376; 76604; 80048; 80053; 83880; 84443; 84484; 85007; 85018; 85025; 85027; 85610-TC; 85730-TC; 86886; 86900; 86901; 86920; 87081; 93005; 93306; 94760; 96361; 96374; 97110-GP; 97116-GP; 97163-GP; 97530-GO; 97530-GP; 97535-GO; 99291; 99292; G0378; J1265; J1885; J2270; J2405; J7050; P9021; P9046